=== PATIENT | female | born 2000 | race Hispanic/Latino ===

== ENCOUNTER 2021-03-21 12:19 | Emergency (ER) | payer SELFPAY ==
[2021-03-21] MEDS ORDERED: Ketorolac Tromethamine 30 MG/ML VIAL ONE (16:42)
== END 2021-03-21 16:54 | disposition home or self-care (01) ==
LOC: CSHERS 12:19
DX: S83.92XA Sprain of unspecified site of left knee, initial encounter (principal); W18.49XA Other slipping, tripping and stumbling without falling, initial encounter
CPT/HCPCS: 96372; J1885